=== PATIENT | male | born 1995 ===

== ENCOUNTER → 2021-03-07 | Outpatient (CLI) | payer SELFPAY ==
[2021-03-09 10:10] LABS: CHLAMYDIA BY NAA Negative (Negative); GONOCOCCUS BY NAA Negative (Negative); TRICH VAG BY NAA Negative (Negative)
== END | disposition home or self-care (01) ==
LOC: LAB SHORT 16:54
PROVIDERS: Chiropractor
DX: R30.9 Painful micturition, unspecified (principal)
CPT/HCPCS: 87086; 87491; 87591; 87661